=== PATIENT | female | born 1960 | race Caucasian/White ===

== ENCOUNTER 2019-03-05 17:04 | Emergency (ER) | payer BC ==
[~2019-03-05] VITALS: Ht 165.1 cm; Wt 73.0 kg
[2019-03-05 17:05] VITALS: BP 125/65
== END 2019-03-05 22:45 | disposition left against medical advice (07) ==
LOC: EDSEX 17:04 → ER 17:04
DX: Z53.21 Procedure and treatment not carried out due to patient leaving prior to being seen by health care provider (principal)